=== PATIENT | male | born 1935 | race Caucasian/White ===

== ENCOUNTER 2020-09-28 08:45 | Outpatient (REF) | payer MEDICARE, SELFPAY ==
[2020-09-28 11:48] LABS: Cholesterol 155 mg/dL; HDL Cholesterol 51 mg/dL; LDL Cholesterol Calculated 77 mg/dl; Triglycerides 139 mg/dL
== END 2020-09-28 08:46 | disposition home or self-care (01) ==
LOC: HO.HMGCLDS 08:45
PROVIDERS: Visit Provider Internal Medicine
DX: E11.9 Type 2 diabetes mellitus without complications (principal)
CPT/HCPCS: 36415; 80061

== ENCOUNTER 2021-04-05 14:00 | Outpatient (REF) | payer MEDICARE, SELFPAY ==
[2021-04-05 15:02] LABS: Influenza A PCR NEGATIVE (Negative); Influenza B PCR NEGATIVE (Negative); Resp Syncy Virus RNA Qual PCR NEGATIVE (Negative); SARS COV2 PCR INHOUSE POSITIVE (Negative)
== END 2021-04-05 14:01 | disposition home or self-care (01) ==
LOC: HO.LNP 14:00
PROVIDERS: Visit Provider Internal Medicine
DX: Z20.822 Contact with and (suspected) exposure to COVID-19 (principal); R43.9 Unspecified disturbances of smell and taste
CPT/HCPCS: 0241U

== ENCOUNTER 2021-04-26 08:43 | Outpatient (REF) | payer MEDICARE, SELFPAY ==
[2021-04-26 12:30] LABS: Alanine Aminotransferase 19 U/L (0-40); Albumin Level 4.2 g/dL (3.5-5.0); Alkaline Phosphatase 75 U/L (39-117); Anion Gap 11 (12-20); Aspartate Amino Transferase 18 U/L (5-37); Bilirubin Total 0.7 mg/dL (0.0-1.0); Blood Urea Nitrogen 20 mg/dL (9-16); Calcium 8.9 mg/dL (8.4-10.2); Carbon Dioxide 28 mmol/L (22-29); Chloride 103 mmol/L (96-108); Cholesterol 138 mg/dL; Estimated Glomerular Filt Rate 48; Glucose Fasting 109 mg/dL (60-99); HDL Cholesterol 39 mg/dL; LDL Cholesterol Calculated 73 mg/dl; Potassium 4.4 mmol/L (3.3-5.1); Sodium 138 mmol/L (135-145); Triglycerides 132 mg/dL
== END 2021-04-26 08:44 | disposition home or self-care (01) ==
LOC: HO.HMGCLDS 08:43
PROVIDERS: PCP Internal Medicine; Visit Provider Nurse Practitioner Family
DX: Z13.1 Encounter for screening for diabetes mellitus (principal)
CPT/HCPCS: 36415; 80053; 80061

== ENCOUNTER 2022-07-17 08:29 | Outpatient (REF) | payer MEDICARE, SELFPAY ==
[2022-07-17 12:37] LABS: Anion Gap 14 (12-20); Blood Urea Nitrogen 18 mg/dL (9-16); Calcium 9.4 mg/dL (8.4-10.2); Carbon Dioxide 27 mmol/L (22-29); Chloride 105 mmol/L (96-108); Estimated Glomerular Filt Rate 47; Glucose Fasting 98 mg/dL (60-99); Potassium 4.9 mmol/L (3.3-5.1); Sodium 141 mmol/L (135-145)
== END 2022-07-17 08:30 | disposition home or self-care (01) ==
LOC: HO.HMGCLDS 08:29
PROVIDERS: Visit Provider Nurse Practitioner Family
DX: Z13.1 Encounter for screening for diabetes mellitus (principal)
CPT/HCPCS: 36415; 80048

== ENCOUNTER 2023-04-02 08:00 | Outpatient (REF) | payer MEDICARE, SELFPAY ==
[2023-04-02 11:19] LABS: MANUAL DIFF FLAG NO
[2023-04-02 11:34] LABS: Basophils Percent Auto 0.5 % (0-2); Eosinophils Absolute Auto 0.2 X10*3/uL (0.0-0.4); Eosinophils Percent Auto 2.5 % (0-4); Hematocrit 41.5 % (42.0-52.0); Hemoglobin 13.7 g/dl (14.0-18.0); Imm Gran Abs Auto 0.02 X10*3/uL (0.00-0.03); Imm Gran Pct Auto 0.3 % (0.0-0.4); Lymphocytes Absolute Auto 1.5 X10*3/uL (1.2-4.9); Lymphocytes Percent Auto 22.2 % (20-40); Mean Corpuscular Hemoglobin 31.1 pg (27.0-33.0); Mean Corpuscular Volume 94.1 fL (80.0-98.0); Mean Platelet Volume 11.2 fL (9.4-12.4); Monocytes Absolute Auto 0.5 X10*3/uL (0.1-1.2); Neutrophils Absolute Auto 4.3 x10*3/uL (2.0-8.3); Neutrophils Percent Auto 66.5 % (45-73); Platelet Count 215 X10*3/uL (160-400); Red Blood Count 4.41 X10*6/uL (4.60-5.80); Red Cell Distribution Width 12.6 % (11.0-16.0); White Blood Count 6.5 X10*3/uL (4.8-10.8)
[2023-04-02 12:18] LABS: Alanine Aminotransferase 15 U/L (0-40); Albumin Level 4.2 g/dL (3.5-5.0); Alkaline Phosphatase 60 U/L (39-117); Anion Gap 15 (12-20); Aspartate Amino Transferase 20 U/L (5-37); Bilirubin Total 0.6 mg/dL (0.0-1.0); Blood Urea Nitrogen 17 mg/dL (9-16); Calcium 9.5 mg/dL (8.4-10.2); Carbon Dioxide 24 mmol/L (22-29); Chloride 105 mmol/L (96-108); Cholesterol 129 mg/dL (<200); Estimated Glomerular Filt Rate 55; Glucose Fasting 93 mg/dL (60-99); HDL Cholesterol 46 mg/dL (>40); LDL Cholesterol Calculated 61 mg/dL (<100); Potassium 4.2 mmol/L (3.3-5.1); Sodium 140 mmol/L (135-145); Triglycerides 112 mg/dL (<150)
== END 2023-04-02 08:01 | disposition home or self-care (01) ==
LOC: HO.HMGCLDS 08:00
PROVIDERS: PCP Internal Medicine; Visit Provider Internal Medicine
DX: E78.5 Hyperlipidemia, unspecified (principal); N28.9 Disorder of kidney and ureter, unspecified; D64.9 Anemia, unspecified
CPT/HCPCS: 36415; 80053; 80061; 85025

== ENCOUNTER 2023-04-05 08:45 | Outpatient (AMB) | payer MEDICARE, SELFPAY ==
[2023-04-05 08:48] VITALS: BP 110/70; PULSE 76; O2SAT 100; BMI 25.8
--- NOTE | 2023-04-05 08:48 | A.OFFVIS_ITS ---
Intake Vital Signs 04/05/23 08:48 Height 6 ft Weight 190 lb 0.8 oz BMI 25.8 BP 110/70 Blood Pressure Location Lt brachial Position Sitting Pulse 76 Pulse Source Pulse Oximeter Temp Source Skin Pulse Oximetry (%) 100 Oxygen Delivery Method Room Air Intake Visit Reasons: SWV [id number] Allergies No Known Allergies Allergy (Verified 04/05/23 09:12) Medication List - Last Reconciled 04/05/23 by PAUL Brannon aspirin (Adult Low Dose Aspirin) 81 mg PO DAILY metoprolol succinate ER 50 mg PO DAILY simvastatin 20 mg PO BEDTIME terazosin 5 mg PO DAILY Fall Risk Assessment Fall risk assessment: No Falls in past year Date Fall Risk Assessed: 10/04/22 HPI SWV [id number] HPI Details Patient is an 87-year-old male who presents today for subsequent wellness visit. Patient of Dr. Qureshi. Today we discussed patient's need for tetanus vaccine, patient has declined tetanus vaccine. [place] of care was reviewed with the patient and he was provided with a screening schedule. End of life planning was discussed with the patient and he was provided with healthcare proxy and MOLST forms. [facility] Medical History Upper respiratory tract infection Hyperlipidemia Surgical History History of skin surgery History of ear surgery Family History Father No problems noted. Mother No problems noted. Son No problems noted. Brother No problems noted. Daughter No problems noted. Social History Housing: House Alcohol intake: current Alcohol intake frequency: 0-2 drinks per day Alcohol type: wine Patient Tobacco Use Status: Former Tobacco user Tobacco use type: Cigarette e-Cigarette/Vaping Use: Never Used Second Hand Smoke Exposure: No service: Yes Current occupational status: retired Cognitive needs: Yes Hearing needs: No Vision needs: Yes Questionnaire Medicare Wellness Checkup What is your age?: 80 or older What gender do you identify with?: male During the past 4 weeks, how much have you been bothered by emotional problems such as feeling anxious, depressed, irritable, sad or downhearted, and blue?: slightly During the past 4 weeks, has your physical & emotional health limited your social activities with family, friends, neighbors, or groups?: not at all During the past 4 weeks, how much bodily pain have you generally had?: mild pain During the past 4 weeks, was someone available to help you if you needed & wanted help?: yes, as much as I wanted During the past 4 weeks, what was the hardest physical activity you could do for at least 2 minutes?: moderate Can you get to places out of walking distance without help? (For eg., can you travel alone on buses, taxis or drive your car?): Yes Can you go shopping for groceries or clothes without someone's help?: Yes Can you prepare your own meals?: Yes Can you do your housework without help?: Yes Because of any health problems, do you need the help of another person with your personal care needs such as eating, bathing, dressing or getting around the house?: No Can you handle your own money without help?: Yes During the past 4 weeks, how would you rate your health in general?: very good During the past 4 weeks how have things been going for you?: pretty well Are you having difficulties driving your car?: no Do you always fasten your seat belt when you are in a car?: yes, usually During past 4 weeks, have you been bothered by the following: never: Sexual problems?, Trouble eating well? and Problems using the telephone?, seldom: Falling or dizzy when standing up and Tiredness or fatigue? and sometimes: Teeth or denture problems? Have you fallen 2 or more times in the past year?: No Are you afraid of falling?: Yes Are you a smoker?: no During the past 4 weeks, how many drinks of wine, beer, or other alcoholic beverages did you have?: 6-9 drinks per week Do you exercise for about 20 minutes 3 or more times a week?: no, I usually do not exercise this much Have you been given information to help with the following?: yes: Hazards in your house that might hurt you? and no: Keeping track of your medications? How often do you have trouble taking medicines the way you have been told to take them?: I always take medicine as prescribed How confident are you that you can control & manage most of your health problems?: somewhat confident What is your race?: White Mini Mental State Exam (MMSE) Orientation What is the (year) (season) (date) (day) (month)?: year, season, date, day and month Score Score: 5 Activity of Daily Living Bathing - sponge bath, tub bath or shower: receives no assistance (gets in/out by self, if usual bathing means Dressing - getting clothes from closets & drawers, including inner/outer garments & fasteners.: gets clothes & gets completely dressed without help Toileting - going to the 'toilet room' for urine/bowel elimination & cleaning self/arranging clothes: goes to toilet room, cleans self, arranges clothes without help Transfer: moves in & out of bed and chair without help (may use support object) Continence: controls urination/bowel movements completely by self Feeding: feeds self without help Total Score: 0 Information obtained from: patient Using telephone: independent Traveling: independent Shopping: independent Preparing meals: independent Housework: independent Taking medicine: independent Managing money: independent PHQ-9 Over the last 2 weeks, how often have you been bothered by any of the following problems? 1. Little interest or pleasure in doing things: not at all 2. Feeling down, depressed, or hopeless: not at all 3. Trouble falling or staying asleep, or sleeping too much: several days 4. Feeling tired or having little energy: several days 5. Poor appetite or overeating: not at all 6. Feeling bad about yourself - or that you are a failure or have let yourself or your family down: not at all 7. Trouble concentrating on things, such as reading the newspaper or watching television: not at all 8. Moving or speaking so slowly that other people could have noticed. Or the opposite - being so fidgety or restless that you have been moving around a lot more than usual: not at all 9. Thoughts that you would be better off or of hurting yourself in some way: not at all Total score: 2 Depression Screening Interpretation: Negative Depression Screening Done: Yes 90193 - PHQ-9 Billing: Yes Source: Developed by Drs. Cr Jules, Yanet Delatorre, Dixon Young and colleagues, with an educational tanner from [employer]. MYRA-7 AMB Questionnaire MYRA-7 Date MYRA - 7 assessed: 10/04/22 Source: Developed by Drs. Cr Jules, Yanet Delatorre, Dixon Young and colleagues, with an educational tanner from [employer]. Thrive Questionnaire Date Thrive assessed: 10/04/22 Physical Exam Vital Signs: Last Vital Signs Pulse 76 04/05/23 08:48 BP 110/70 04/05/23 08:48 Pulse Ox 100 04/05/23 08:48 Oxygen Delivery Method Room Air 04/05/23 08:48 BMI result Body Mass Index 25.8 Const General: cooperative and no acute distress Orientation/consciousness: patient oriented x3 HEENT Other: Whisper test: fail Neuro Other: Balance: Normal Get up and walk: unable to Romberg: negative Tandem gait: unable to General: patient oriented x3 Assessment & Plan Assessment & Plan (1) Adult general medical exam: Code(s): Z00.00 - Encounter for general adult medical examination without abnormal findings (2) Hypertension: Code(s): I10 - Essential (primary) hypertension Plan: Continue current treatment. Reinforced low-sodium diet and exercise as tolerated. (3) BPH associated with nocturia: Code(s): N40.1 - Benign prostatic hyperplasia with lower urinary tract symptoms; R35.1 - Nocturia Plan: Continue to follow-up with urology Dr. Steele. (4) Hyperlipidemia: Code(s): E78.5 - Hyperlipidemia, unspecified Plan: Continue current treatment. Reinforced low-cholesterol diet. 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
== END 2023-04-05 09:28 | disposition home or self-care (01) ==
PROVIDERS: Visit Provider Nurse Practitioner Family
DX: Z00.00 Encounter for general adult medical examination without abnormal findings (principal); I10 Essential (primary) hypertension; N40.1 Benign prostatic hyperplasia with lower urinary tract symptoms; R35.1 Nocturia; E78.5 Hyperlipidemia, unspecified
CPT/HCPCS: 1124F; G0439

== ENCOUNTER 2023-04-09 09:05 | Outpatient (AMB) | payer MEDICARE, SELFPAY ==
[2023-04-09 09:06] VITALS: BP 102/58; PULSE 65; O2SAT 95; BMI 26.4
--- NOTE | 2023-04-09 09:06 | MHC.PC.OV ---
Vital Signs 04/09/23 09:06 Height 6 ft Weight 195 lb BMI 26.4 BP 102/58 L Blood Pressure Location Lt brachial Position Sitting Pulse 65 Pulse Source Pulse Oximeter Pulse Oximetry (%) 95 Oxygen Delivery Method Room Air Intake Visit Reasons: 6 month f/u Allergies No Known Allergies Allergy (Verified 04/09/23 09:06) Medication List - Last Reconciled 04/09/23 by Christo Qureshi MD aspirin (Adult Low Dose Aspirin) 81 mg PO DAILY metoprolol succinate ER 50 mg PO DAILY simvastatin 20 mg PO BEDTIME terazosin 5 mg PO DAILY Tobacco use date assessed: 10/04/22 Fall risk assessment: No Falls in past year Last assessed Fall Risk: 04/09/23 Dental Screening Dental Screen Date: 04/09/23 Did you have a dental visit in the last 12 months?: Yes Did you have a dental problem in the last 6 months where you did not have access to dental care?: No Was dental information given to patient?: Patient has dentist HPI 6 month f/u HPI Details HTN hyperlipidemia and BPH; compliant on rx; doing well [facility] Medical History Upper respiratory tract infection Hyperlipidemia Surgical History History of skin surgery History of ear surgery Family History Father No problems noted. Mother No problems noted. Son No problems noted. Brother No problems noted. Daughter No problems noted. Social History Housing: House Alcohol intake: current Alcohol intake frequency: 0-2 drinks per day Alcohol type: wine Patient Tobacco Use Status: Former Tobacco user Tobacco use type: Cigarette e-Cigarette/Vaping Use: Never Used Second Hand Smoke Exposure: No service: Yes Current occupational status: retired Cognitive needs: Yes Hearing needs: No Vision needs: Yes Questionnaire PHQ-9 Over the last 2 weeks, how often have you been bothered by any of the following problems? 1. Little interest or pleasure in doing things: not at all 2. Feeling down, depressed, or hopeless: not at all 3. Trouble falling or staying asleep, or sleeping too much: several days 4. Feeling tired or having little energy: several days 5. Poor appetite or overeating: not at all 6. Feeling bad about yourself - or that you are a failure or have let yourself or your family down: not at all 7. Trouble concentrating on things, such as reading the newspaper or watching television: not at all 8. Moving or speaking so slowly that other people could have noticed. Or the opposite - being so fidgety or restless that you have been moving around a lot more than usual: not at all 9. Thoughts that you would be better off or of hurting yourself in some way: not at all Total score: 2 Depression Screening Interpretation: Negative Depression Screening Done: Yes 20343 - PHQ-9 Billing: Yes Source: Developed by Drs. Cr Jules, Dixon Tabor and colleagues, with an educational tanner from [employer]). Thrive Questionnaire Date Thrive assessed: 10/04/22 AUDIT C Alcohol Use Questionnaire (AUDIT-C) 1. How often do you have a drink containing alcohol?: 4 or more times a week 2. How many drinks containing alcohol do you have on a typical day when you are drinking?: 1 or 2 3. How often do you have six or more drinks on one occasion?: Never Total Score: 4 Score Reviewed/Action Taken: Yes MYRA-7 AMB Questionnaire MYRA-7 Date MYRA - 7 assessed: 10/04/22 Source: Developed by Drs. Cr Jules, Dixon Tabor and colleagues, with an educational tanner from [employer] ([employer] Review of Systems Const Denies chills, Denies headache(s) and Denies weight loss ENT Denies headache(s) Card Denies chest pain, Denies syncope, Denies irregular heart rhythm and Denies dyspnea Resp Denies chest congestion, Denies cough and Denies dyspnea GI Denies abdominal pain, Denies change in stool character, Denies nausea and Denies vomiting Musc Denies deformity and Denies joint swelling Neuro Denies syncope and Denies headache(s) Physical exam (Primary Care) Vital Signs: Last Vital Signs Pulse 65 04/09/23 09:06 BP 102/58 L 04/09/23 09:06 Pulse Ox 95 04/09/23 09:06 Oxygen Delivery Method Room Air 04/09/23 09:06 BMI result Body Mass Index 26.4 Tobacco/Smoking Status: Tobacco use Status Tobacco use date assessed 10/04/22 04/09/23 09:07 Patient Tobacco Use Status Former Tobacco user 04/09/23 09:07 Tobacco use type Cigarette 04/09/23 09:07 e-Cigarette/Vaping Use Never Used 04/09/23 09:07 PHQ-9: PHQ-9 Score PHQ-9: Total score 2 04/09/23 09:07 Depression Screening Interpretation: Negative Thrive Assessment: Date of Thrive Assessment Date Thrive assessed 10/04/22 04/09/23 09:07 Const General: cooperative, comfortable, no acute distress and alert Neck Neck: Yes no lymphadenopathy Thyroid: Thyroid normal Resp Effort & Inspection: normal respiratory effort Auscultation: clear to auscultation bilaterally Percussion: percussion normal Cardio Jugular venous distension: no JVD Palpation: normal PMI Rate: regular rate Rhythm: regular rhythm Heart sounds: S1 normal heart sound present and S2 normal heart sound present GI Inspection: Yes normal to inspection Palpation (GI): No hepatosplenomegaly present Skin General skin exam: no rashes or lesions noted Extrem General: Yes no clubbing, cyanosis or edema Assessment and Plan Assessment & Plan (1) Hypertension: Code(s): I10 - Essential (primary) hypertension Plan: stable; same rx (2) BPH associated with nocturia: Code(s): N40.1 - Benign prostatic hyperplasia with lower urinary tract symptoms; R35.1 - Nocturia Plan: stable; same rx (3) Hyperlipidemia: Code(s): E78.5 - Hyperlipidemia, unspecified Plan: stable; same rx Orders: Orders Lipid Panel Today E78.5 - Hyperlipidemia, unspecified Coding Level of Care Code Est Pt Level 4 (09689) Diagnoses Hypertension I10 BPH associated with nocturia N40.1; R35.1 Hyperlipidemia E78.5
== END 2023-04-09 09:22 | disposition home or self-care (01) ==
PROVIDERS: PCP Internal Medicine; Visit Provider Internal Medicine
DX: I10 Essential (primary) hypertension (principal); N40.1 Benign prostatic hyperplasia with lower urinary tract symptoms; R35.1 Nocturia; E78.5 Hyperlipidemia, unspecified
CPT/HCPCS: 99214

== ENCOUNTER 2023-10-04 11:06 | Outpatient (AMB) | payer MEDICARE, SELFPAY ==
[2023-10-04 11:07] VITALS: BP 120/64; PULSE 74; O2SAT 98; BMI 26.0
--- NOTE | 2023-10-04 11:07 | A.OFFPC_ITS ---
Vital Signs 10/04/23 11:07 Height 6 ft Weight 192 lb 0.6 oz BMI 26.0 BP 120/64 Blood Pressure Location Lt brachial Position Sitting Pulse 74 Pulse Source Pulse Oximeter Pulse Oximetry (%) 98 Oxygen Delivery Method Room Air Intake Visit Reasons: Groin pain Intake Note: pt states he has been having pain on groin area for about 3-4weeks, stated he cannot lift anything without being in pain. 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: No Allergies No Known Allergies Allergy (Verified 10/04/23 11:08) Medication List - Last Reconciled 10/04/23 by Christo Qureshi MD aspirin (Adult Low Dose Aspirin) 81 mg PO DAILY metoprolol succinate ER 50 mg PO DAILY simvastatin 20 mg PO BEDTIME terazosin 5 mg PO DAILY Tobacco use date assessed: 10/04/23 Fall risk assessment: No Falls in past year Last assessed Fall Risk: 10/04/23 Dental Screening Dental Screen Date: 04/09/23 HPI Groin pain HPI Details pain right groin for 2 weeks PFSH Medical History Upper respiratory tract infection Hyperlipidemia Surgical History History of skin surgery History of ear surgery Family History Father No problems noted. Mother No problems noted. Son No problems noted. Brother No problems noted. Daughter No problems noted. Social History Housing: House Alcohol intake: current Alcohol intake frequency: 0-2 drinks per day Alcohol type: wine Patient Tobacco Use Status: Former Tobacco user Tobacco use type: Cigarette e-Cigarette/Vaping Use: Never Used Second Hand Smoke Exposure: No service: Yes Current occupational status: retired Cognitive needs: Yes Hearing needs: No Vision needs: Yes Questionnaire Thrive Questionnaire Date Thrive assessed: 10/04/23 AUDIT C Alcohol Use Questionnaire (AUDIT-C) 1. How often do you have a drink containing alcohol?: 4 or more times a week 2. How many drinks containing alcohol do you have on a typical day when you are drinking?: 1 or 2 3. How often do you have six or more drinks on one occasion?: Never Total Score: 4 Score Reviewed/Action Taken: Yes MYRA-7 AMB Questionnaire MYRA-7 Date MYRA - 7 assessed: 10/04/23 Source: Developed by Drs. Cr Jules, Yanet Delatorre, Dixon Young and colleagues, with an educational tanner from [employer]. Review of Systems Const Denies chills, Denies headache(s) and Denies weight loss ENT Denies headache(s) Card Denies chest pain, Denies syncope, Denies irregular heart rhythm and Denies dyspnea Resp Denies chest congestion, Denies cough and Denies dyspnea GI Denies abdominal pain, Denies change in stool character, Denies nausea and Denies vomiting Musc Denies deformity and Denies joint swelling Neuro Denies syncope and Denies headache(s) Physical exam (Primary Care) Vital Signs: Last Vital Signs Pulse 74 10/04/23 11:07 BP 120/64 10/04/23 11:07 Pulse Ox 98 10/04/23 11:07 Oxygen Delivery Method Room Air 10/04/23 11:07 BMI result Body Mass Index 26.0 Tobacco/Smoking Status: Tobacco use Status Tobacco use date assessed 10/04/23 10/04/23 11:08 Patient Tobacco Use Status Former Tobacco user 10/04/23 11:08 Tobacco use type Cigarette 10/04/23 11:08 e-Cigarette/Vaping Use Never Used 10/04/23 11:08 Thrive Assessment: Date of Thrive Assessment Date Thrive assessed 10/04/23 10/04/23 11:08 Const General: cooperative, comfortable, no acute distress and alert Neck Neck: Yes no lymphadenopathy Thyroid: Thyroid normal Resp Effort & Inspection: normal respiratory effort Auscultation: clear to auscultation bilaterally Percussion: percussion normal Cardio Jugular venous distension: no JVD Palpation: normal PMI Rate: regular rate Rhythm: regular rhythm Heart sounds: S1 normal heart sound present and S2 normal heart sound present GI Inspection: Yes normal to inspection Palpation (GI): No hepatosplenomegaly present Other: small right IH Skin General skin exam: no rashes or lesions noted Extrem General: Yes no clubbing, cyanosis or edema Assessment and Plan Assessment & Plan (1) Inguinal hernia: Code(s): K40.90 - Unilateral inguinal hernia, without obstruction or gangrene, not specified as recurrent Plan: scrptal US Orders: Orders US scrotum Today K40.90 - Unilateral inguinal hernia, without obstruction or gangrene, not specified as recurrent Coding Level of Care Code Est Pt Level 3 (50886) Diagnoses Inguinal hernia K40.90
== END 2023-10-04 11:25 | disposition home or self-care (01) ==
PROVIDERS: PCP Internal Medicine; Visit Provider Internal Medicine
DX: K40.90 Unilateral inguinal hernia, without obstruction or gangrene, not specified as recurrent (principal)
CPT/HCPCS: 99213

== ENCOUNTER 2023-10-09 10:21 | Outpatient (REF) | payer MEDICARE, SELFPAY ==
--- NOTE | ~2023-10-09 | US_ITS ---
EXAMINATION: US RIGHT, LIMITED/FOLLOW UP CLINICAL INFORMATION: Right pelvic pain COMPARISON: None available. TECHNIQUE: Ultrasound of the area indicated by the patient in the right pelvic/inguinal area. The patient was scanned supine and standing. FINDINGS: Ultrasound of the right pelvic area in the area of concern indicated by the patient demonstrate a normal-appearing enlarged 3.3 x 0.9 x 3.1 cm lymph node. A large amount of peristalsing bowel is seen.? 6.1 cm hernia. Peristalsing bowel is seen protruding through the fascia. US/US pelvic limited IMPRESSION: 1. In the area of concern indicated by the patient in the right pelvic area, there is a normal-appearing enlarged 3.3 cm lymph node. 2. ? 6.1 cm hernia near concern indicated by the patient. CT scan could be obtained for further evaluation.
== END 2023-10-09 10:22 | disposition home or self-care (01) ==
LOC: HO.HMGCX 10:21
PROVIDERS: PCP Internal Medicine; Visit Provider Internal Medicine
DX: K40.90 Unilateral inguinal hernia, without obstruction or gangrene, not specified as recurrent (principal)
CPT/HCPCS: 76857

== ENCOUNTER 2023-10-17 08:19 | Outpatient (AMB) | payer MEDICARE, SELFPAY ==
--- NOTE | 2023-10-17 08:20 | A.OFFVIS_ITS ---
Vital Signs 10/17/23 08:25 Height 6 ft Weight 193 lb BMI 26.2 BP 133/64 Blood Pressure Location Rt brachial Position Sitting Pulse 73 Intake Visit Reasons: Unilateral inguinal hernia Intake Note: Patient referred by PCP Dr. Qureshi for Unilateral inguinal hernia. First noticed about 4m ago. Patient c/o: on and off pain 01/25. Pelvis US: 10-09-23. Account Officer Required: No Accompanied by: Self / Same As Patient Allergies No Known Allergies Allergy (Verified 10/17/23 08:27) HPI Comments Details: Approximate 1 month history of symptomatic right inguinal hernia. It is increasing in size, becoming more symptomatic. Patient has no other GI issues or complaints aside from occasional constipation which he has had for many years time. He does occasionally do strenuous activities. Chart was reviewed and patient evaluated [facility]END[facility] S[facility] TO [facility] Medical History (Updated 10/17/23 @ 08:31 by HENRIK Medina) History of melanoma Upper respiratory tract infection Hyperlipidemia Surgical History (Updated 10/17/23 @ 09:31 by Artie Navarrete MD) History of skin surgery History of ear surgery Family History Father No problems noted. Mother No problems noted. Son No problems noted. Brother No problems noted. Daughter No problems noted. Social History Housing: House Alcohol intake: current Alcohol intake frequency: 0-2 drinks per day Alcohol type: wine Patient Tobacco Use Status: Former Tobacco user Tobacco use type: Cigarette e-Cigarette/Vaping Use: Never Used Second Hand Smoke Exposure: No service: Yes Current occupational status: retired Cognitive needs: Yes Hearing needs: No Vision needs: Yes Physical Exam Vital Signs: Last Vital Signs Pulse 73 10/17/23 08:25 BP 133/64 10/17/23 08:25 BMI result Body Mass Index 26.2 Chest Other: Chest breath sounds bilaterally, HS 1 in 2 GI Other: Patient was examined both supine and standing with Valsalva. Left groin negative. Genitalia within normal limits. Very large reducible right inguinal hernia. Abdomen otherwise soft and benign Assessment & Plan Assessment & Plan (1) Inguinal hernia: Code(s): K40.90 - Unilateral inguinal hernia, without obstruction or gangrene, not specified as recurrent Category: Surgical Plan Risks, benefits, alternatives of open right inguinal hernia repair with mesh were reviewed the patient and included but not limited to bleeding, infection, recurrence, numbness, pain, scarring and the patient wished to proceed. All questions answered. Arrangements made for this. Coding Level of Care Code New Pt Level 5 (93261) Diagnoses Inguinal hernia K40.90
[2023-10-17 08:25] VITALS: BP 133/64; PULSE 73; BMI 26.2
== END 2023-10-17 08:53 | disposition home or self-care (01) ==
PROVIDERS: PCP Internal Medicine; Referring Provider Internal Medicine; Visit Provider Surgery
DX: K40.90 Unilateral inguinal hernia, without obstruction or gangrene, not specified as recurrent (principal)
CPT/HCPCS: 99204

== ENCOUNTER → 2023-10-17 08:19 | Outpatient (BNVA) | payer MEDICARE, SELFPAY | PROVIDERS: PCP Internal Medicine; Referring Provider Internal Medicine; Visit Provider Surgery | DX: K40.90 Unilateral inguinal hernia, without obstruction or gangrene, not specified as recurrent (principal) | CPT/HCPCS: 99202 ==

== ENCOUNTER → 2023-11-08 13:54 | Outpatient (BNV) | payer MEDICARE, SELFPAY | PROVIDERS: PCP Internal Medicine; Visit Provider Internal Medicine Cardiovascular Disease | DX: R00.1 Bradycardia, unspecified (principal); I45.2 Bifascicular block | CPT/HCPCS: 93010 ==

== ENCOUNTER 2023-11-16 06:21 | Day surgery (SDC) | payer MEDICARE, SELFPAY ==
--- NOTE | 2023-11-08 | ECG_ITS ---
Test Reason : PREOP Blood Pressure : / mmHG Vent. 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
[2023-11-08 12:31] VITALS: BP 131/79; PULSE 66; RESP 18; O2SAT 97; BMI 26.0
--- NOTE | 2023-11-08 13:16 | P.CONAN_ITS ---
Documented by User: Vandana Hays NP 11/14/23 13:48 HPI - Anesthesia Eval Consult details Narrative: 88yo M for Right Repair Hernia Inguinal Reducible with mesh No recent illness No CP/SOB with ADL's/active lifestyle GERD: PRN Tums New bifascicular block. Case reviewed with Dr Phillip by MEI Baker. OK to proceed with anesthesia eval DOS. PMFSH Active Problems Active Problems: All Active Problems Inguinal hernia (Acute) Adult general medical exam (Acute) Screening for diabetes mellitus (Acute) Hypertension (Acute) BPH associated with nocturia (Acute) Hyperlipidemia (Acute) Past Medical History Medical History COVID-19 History of Mohs micrographic surgery for skin cancer Arthritis Constipation GERD (gastroesophageal reflux disease) Pilonidal cyst with abscess On beta kyaw at home Numbness BPH (benign prostatic hyperplasia) HTN (hypertension) History of melanoma Upper respiratory tract infection Hyperlipidemia Family History Family History Father No problems noted. Mother No problems noted. Son No problems noted. Brother No problems noted. Daughter No problems noted. Family history of problems with anesthesia: No Surgical History Surgical History Hx of tonsillectomy H/O colonoscopy Hx of prostate biopsy History of skin surgery History of ear surgery History of Problems with Anesthesia: No Social History Social History Housing: House Are you a primary customer care associate to a significant other at home: No Do you presently have visiting nurse or other home services: No Alcohol intake: current Alcohol intake frequency: 0-2 drinks per day Alcohol type: wine Patient Tobacco Use Status: Former Tobacco user Tobacco use type: Cigarette e-Cigarette/Vaping Use: Never Used Second Hand Smoke Exposure: No Use of substances other than those prescribed or required for medical reasons: No Have you been hit, kicked, punched, or otherwise hurt by someone within the past year? If so, by whom?: No Are you DNR?: No Advance Directives: No Advance Directives Information Provided: Yes Advance Directives on File: No Recently lost weight without trying: No Eating poorly because of decreased appetite: No Nutrition Risks: No Nutritional Risk Poor oral hygiene: Yes (partial upper and lower denture) service: Yes Current occupational status: retired Cognitive needs: Yes Hearing needs: No Vision needs: Yes Meds Allergies Allergy/AdvReac Type Severity Reaction Status Date / Time No Known Allergies Allergy Verified 10/17/23 08:27 Home Medications ?Medication ?Instructions ?Recorded ?Confirmed ?Last Taken ?Type metoprolol succinate 50 mg 50 mg PO BEDTIME 11/08/23 11/08/23 11/15/23 History tablet,extended release 24 hr terazosin 5 mg capsule 5 mg PO BEDTIME 11/08/23 11/08/23 11/15/23 History Exam Height,Weight and Vital Signs: Height 6 ft Weight 87.09 kg Last Vital Signs Pulse 66 11/08/23 12:31 Resp 18 11/08/23 12:31 BP 131/79 11/08/23 12:31 Pulse Ox 97 11/08/23 12:31 O2 Del Method Room Air 11/08/23 12:31 Pertinent Lab Results Pertinent Lab Results: Lab Results 11/08/23 Range/Units 13:49 WBC 7.5 (4.8-10.8) X10*3/uL RBC 4.23 L (4.60-5.80) X10*6/uL Hgb 13.3 L (14.0-18.0) g/dl Hct 40.6 L (42.0-52.0) % MCV 96.0 (80.0-98.0) fL MCH 31.4 (27.0-33.0) pg MCHC 32.8 (31.0-36.0) g/dl RDW 13.0 (11.0-16.0) % Plt Count 220 (160-400) X10*3/uL MPV 10.1 (9.4-12.4) fL Absolute Nucleated RBC 0.000 (0.0-0.012) X10*3/uL Nucleated RBC % (auto) 0.0 (0.0-0.2) /100WBC Sodium 143 (135-145) mmol/L Potassium 4.2 (3.3-5.1) mmol/L Chloride 105 (96-108) mmol/L Carbon Dioxide 26 (22-29) mmol/L Anion Gap 16 (12-20) BUN 25 H (9-16) mg/dL Creatinine 1.23 (0.5-1.4) mg/dL Estim Creat Clear Calc 45.5 Estimated GFR 56 Random Glucose 90 (60-115) mg/dL Calcium 9.8 (8.4-10.2) mg/dL Narrative Narrative: EKG 10/2023 Vent. Rate : 055 BPM Atrial Rate : 055 BPM P-R Int : 172 ms QRS Dur : 126 ms QT Int : 440 ms P-R-T Axes : 081 -62 034 degrees QTc Int : 420 ms Sinus bradycardia with Premature atrial complexes in a pattern of bigeminy Right bundle branch block Left anterior fascicular block Bifascicular block Abnormal ECG No previous ECGs available Airway TM Dist: >3cm Neck ROM: Limited (lateral turn limited) Partial: Upper and Lower Heart: RRR Lungs: CTAB Assessment and Plan Assessment Anesthesia Assessment: Anesthesia Plan Discussed and PAT Visit Final Anesthetic Review Family History of Problems with Anesthesia: No History of Problems with Anesthesia: No Documented by User: Johana Winters MD 11/16/23 08:07 REPLACED BY [facility] Past Medical History Medical History COVID-19 History of Mohs micrographic surgery for skin cancer Arthritis Constipation GERD (gastroesophageal reflux disease) Pilonidal cyst with abscess On beta kyaw at home Numbness BPH (benign prostatic hyperplasia) HTN (hypertension) History of melanoma Upper respiratory tract infection Hyperlipidemia Family History Family History Father No problems noted. Mother No problems noted. Son No problems noted. Brother No problems noted. Daughter No problems noted. Surgical History Surgical History Hx of tonsillectomy H/O colonoscopy Hx of prostate biopsy History of skin surgery History of ear surgery Social History Social History Housing: House Are you a primary customer care associate to a significant other at home: No Do you presently have visiting nurse or other home services: No Alcohol intake: current Alcohol intake frequency: 0-2 drinks per day Alcohol type: wine Patient Tobacco Use Status: Former Tobacco user Tobacco use type: Cigarette e-Cigarette/Vaping Use: Never Used Second Hand Smoke Exposure: No Use of substances other than those prescribed or required for medical reasons: No Have you been hit, kicked, punched, or otherwise hurt by someone within the past year? If so, by whom?: No Are you DNR?: No Advance Directives: No Advance Directives Information Provided: Yes Advance Directives on File: No Recently lost weight without trying: No Eating poorly because of decreased appetite: No Nutrition Risks: No Nutritional Risk Poor oral hygiene: Yes (partial upper and lower denture) service: Yes Current occupational status: retired Cognitive needs: Yes Hearing needs: No Vision needs: Yes Meds Allergies Allergy/AdvReac Type Severity Reaction Status Date / Time No Known Allergies Allergy Verified 10/17/23 08:27 Home Medications ?Medication ?Instructions ?Recorded ?Confirmed ?Last Taken ?Type metoprolol succinate 50 mg 50 mg PO BEDTIME 11/08/23 11/08/23 11/15/23 History tablet,extended release 24 hr terazosin 5 mg capsule 5 mg PO BEDTIME 11/08/23 11/08/23 11/15/23 History Exam Airway Mallampati Class: III Loose/Missing/Broken Teeth: Yes, Upper and Lower Assessment and Plan Final Anesthetic Review NPO: Yes ASA Class: III Final Preanesthetic Review: Meds/Allgs Chart Reviewed and Anes Risks/Benef Reviewed Patient Risk: Intermediate Procedure Risk: Low Anesthetic Plan Anesthetic Plan: MAC: Disposition: Standard PACU
[2023-11-08 14:10] LABS: Hematocrit 40.6 % (42.0-52.0); Hemoglobin 13.3 g/dl (14.0-18.0); Mean Corpuscular HGB Conc 32.8 g/dl (31.0-36.0); Mean Corpuscular Hemoglobin 31.4 pg (27.0-33.0); Mean Platelet Volume 10.1 fL (9.4-12.4); Platelet Count 220 X10*3/uL (160-400); Red Blood Count 4.23 X10*6/uL (4.60-5.80); White Blood Count 7.5 X10*3/uL (4.8-10.8)
[2023-11-08 14:41] LABS: Anion Gap 16 (12-20); Blood Urea Nitrogen 25 mg/dL (9-16); Calcium 9.8 mg/dL (8.4-10.2); Carbon Dioxide 26 mmol/L (22-29); Chloride 105 mmol/L (96-108); Creatinine Clr Calc Pharmacy 45.5; Estimated Glomerular Filt Rate 56; Glucose Random 90 mg/dL (60-115); Potassium 4.2 mmol/L (3.3-5.1); Sodium 143 mmol/L (135-145)
--- NOTE | 2023-11-15 13:23 | MHC.SHP ---
Pre-Procedural Eval Section A - 24 Hr Update-Section A only Date of Service: 11/16/23 The patient is an INPATIENT: No Changes since office visit: No Cold of Flu in the past 2 weeks, No New Medical Problems, No Changes in Medication and No Patient answered all questions Section B - Complete if H&P > 30 days Chief Complaint: Unilateral inguinal hernia, without obstruction or Allergies: Allergies Allergy/AdvReac Type Severity Reaction Status Date / Time No Known Allergies Allergy Verified 10/17/23 08:27 Plan I have reviewed the history and physical and performed a pertinent physical examination on my patient. No changes have occurred unless specified. Time Spent With Patient Time: Total time managing care of this patient today ____ minutes.
[2023-11-16 06:44] VITALS: BP 137/65; PULSE 58; RESP 16; TEMP 36.1; O2SAT 99
[2023-11-16] MEDS: Lactated Ringers 1,000 ML 100 ML IVCONT (06:47)
--- NOTE | 2023-11-16 08:27 | P.OP_ITS ---
Operative Note Operative Note Date of Service: 11/16/23 Narrative: Preoperative diagnosis: [] Symptomatic right inguinal hernia Postop diagnosis: [] The same Procedure [] open right inguinal herniorrhaphy with Bard mesh Surgeon: [] Landon Assembler Arranger: [] Elisabeth Humphries Type of Anesthesia: [] MAC Indication for surgery: [] Very large indirect right inguinal hernia. No direct hernia demonstrated. Findings: [] Patient brought to the operating room, placed on operative table supine position, after adequate level of MAC anesthesia was induced, the right groin was prepped and draped in usual sterile fashion. Using a small right para inguinal incision, this carried down through skin, subcutaneous tissue, Henry's fascia. External oblique fibers were opened their direction with care to isolate and preserve the ilioinguinal nerve throughout the procedure. Spermatic cord was identified and retracted from the field. Exploration of the cord demonstrated very large indirect hernia sac which was from the cord and reduced. No direct hernia was demonstrated. A Bard plug was placed in the indirect defect, and sutured inferiorly to the inguinal ligament, and superiorly to the transversalis fascia using interrupted 0 Ethibond suture. Mesh was in good position and cover the entire inguinal floor as well as the indirect defect. It was under no tension and with no gaps. Wound was irrigated, secured hemostasis, and closed in the following manner; external oblique fascia was closed using running 2-0 Vicryl suture. Henry's fascia was reapproximated using interrupted 3-0 Vicryl sutures. Interrupted inverted deep dermal 3-0 Vicryl sutures followed by running subcuticular 4-0 Vicryl sutures were placed. Steri-Strips and sterile dressings were applied. Wound was infiltrated at the beginning at the end of the case with 0.5% Marcaine/1% lidocaine locally and with ilioinguinal block. Sponge, needle, and instrument counts reported correct. Patient tolerated the procedure well and emerged from anesthesia stable condition. Ipsilateral testicle was intrascrotal at completion. EBL minimal
[2023-11-16 08:35] VITALS: BP 105/55; PULSE 56; RESP 16; TEMP 36.1; O2SAT 97
[2023-11-16 08:50] VITALS: BP 110/64; PULSE 59; RESP 16; O2SAT 97
[2023-11-16 09:05] VITALS: BP 116/64; PULSE 50; RESP 16; O2SAT 99
[2023-11-16 09:19] VITALS: BP 101/68; PULSE 54; RESP 16; O2SAT 98
[2023-11-16 09:35] VITALS: BP 127/71; PULSE 53; RESP 16; TEMP 36.2; O2SAT 99
[2023-11-16] MEDS: Acetaminophen 325 MG TABLET 650 MG PO (09:38)
== END 2023-11-16 10:15 | disposition home or self-care (01) ==
PROVIDERS: Nurse Practitioner; PCP Internal Medicine; Visit Provider Surgery
PROC: (CPT 49505; principal; 2023-11-16 08:00)
DX: K40.90 Unilateral inguinal hernia, without obstruction or gangrene, not specified as recurrent (principal)
CPT/HCPCS: 49505; 36415; 80048; 85027; 93005; C1781; J0690; J2704; J2795; J3010

== ENCOUNTER → 2023-11-16 06:21 | Outpatient (BNV) | payer MEDICARE, SELFPAY | PROVIDERS: PCP Internal Medicine; Visit Provider Surgery | DX: K40.90 Unilateral inguinal hernia, without obstruction or gangrene, not specified as recurrent (principal) | CPT/HCPCS: 49505 ==

== ENCOUNTER 2023-11-26 09:55 | Outpatient (AMB) | payer MEDICARE, SELFPAY ==
--- NOTE | 2023-11-26 10:07 | MHC.OFFVIS ---
Intake Visit Reasons: S/P RIH w/mesh Allergies No Known Allergies Allergy (Verified 10/17/23 08:27) HPI Comments Details: Patient presents for follow-up. He has no wound issues or complaints. Tolerating his diet. Having regular bowel habits. Otherwise doing very well. [facility] Medical History COVID-19 History of Mohs micrographic surgery for skin cancer Arthritis Constipation GERD (gastroesophageal reflux disease) Pilonidal cyst with abscess On beta kyaw at home Numbness BPH (benign prostatic hyperplasia) HTN (hypertension) History of melanoma Upper respiratory tract infection Hyperlipidemia Surgical History (Updated 11/26/23 @ 10:08 by Artie Navarrete MD) Inguinal hernia (11/16/23) Hx of tonsillectomy H/O colonoscopy Hx of prostate biopsy History of skin surgery History of ear surgery Family History Father No problems noted. Mother No problems noted. Son No problems noted. Brother No problems noted. Daughter No problems noted. Social History Housing: House Are you a primary transition of care specialist to a significant other at home: No Do you presently have visiting nurse or other home services: No Alcohol intake: current Alcohol intake frequency: 0-2 drinks per day Alcohol type: wine Patient Tobacco Use Status: Former Tobacco user Tobacco use type: Cigarette e-Cigarette/Vaping Use: Never Used Second Hand Smoke Exposure: No service: Yes Current occupational status: retired Cognitive needs: Yes Hearing needs: No Vision needs: Yes Physical Exam GI Other: Abdomen is soft. Wound clean dry and intact healing very well Assessment & Plan Assessment & Plan (1) Postop check: Code(s): Z09 - Encounter for follow-up examination after completed treatment for conditions other than malignant neoplasm Category: Surgical Plan Patient has been given local instructions, and will otherwise follow-up p.r.n.. All questions answered. Coding Level of Care Code Global (72574) Diagnoses Postop check Z09
== END 2023-11-26 10:10 | disposition home or self-care (01) ==
PROVIDERS: PCP Internal Medicine; Visit Provider Surgery
DX: Z09 Encounter for follow-up examination after completed treatment for conditions other than malignant neoplasm (principal)
CPT/HCPCS: 99024

== ENCOUNTER → 2023-11-26 09:55 | Outpatient (BNVA) | payer MEDICARE, SELFPAY | PROVIDERS: PCP Internal Medicine; Visit Provider Surgery | DX: Z09 Encounter for follow-up examination after completed treatment for conditions other than malignant neoplasm (principal) | CPT/HCPCS: 99212 ==

== ENCOUNTER 2024-04-08 08:58 | Outpatient (AMB) | payer MEDICARE, SELFPAY ==
[2024-04-08 09:05] VITALS: BP 114/62; PULSE 59; O2SAT 97; BMI 25.1
--- NOTE | 2024-04-08 09:05 | AM.OFFVISMDC ---
Intake Vital Signs 04/08/24 09:05 Height 6 ft Weight 185 lb BMI 25.1 BP 114/62 Blood Pressure Location Lt brachial Position Sitting Pulse 59 Pulse Source Pulse Oximeter Pulse Oximetry (%) 97 Oxygen Delivery Method Room Air Intake Visit Reasons: SWV Digital Marketing Intern Required: No Accompanied by: Self / Same As Patient Allergies No Known Allergies Allergy (Verified 04/08/24 09:05) Medication List - Last Reconciled 04/09/24 by Christo Qureshi MD metoprolol succinate ER 50 mg PO BEDTIME simvastatin 20 mg PO BEDTIME terazosin 5 mg PO BEDTIME HPI SWV HPI Details hypertension and hyperlipidemia PFSH Medical History (Updated 04/09/24 @ 09:06 by Christo Qureshi MD) COVID-19 History of Mohs micrographic surgery for skin cancer Arthritis Constipation GERD (gastroesophageal reflux disease) Pilonidal cyst with abscess On beta kyaw at home Numbness BPH (benign prostatic hyperplasia) HTN (hypertension) History of melanoma Upper respiratory tract infection Hyperlipidemia Surgical History (Updated 11/26/23 @ 10:08 by Artie Navarrete MD) Inguinal hernia (11/16/23) Hx of tonsillectomy H/O colonoscopy Hx of prostate biopsy History of skin surgery History of ear surgery Family History Father No problems noted. Mother No problems noted. Son No problems noted. Brother No problems noted. Daughter No problems noted. Social History Housing: House Are you a primary direct care supervisor to a significant other at home: No Do you presently have visiting nurse or other home services: No Alcohol intake: current Alcohol intake frequency: 0-2 drinks per day Alcohol type: wine Patient Tobacco Use Status: Former Tobacco user Tobacco use type: Cigarette e-Cigarette/Vaping Use: Never Used Second Hand Smoke Exposure: No service: Yes Current occupational status: retired Cognitive needs: Yes Hearing needs: No Vision needs: Yes Questionnaire Medicare Wellness Checkup What is your age?: 80 or older What gender do you identify with?: male During the past 4 weeks, how much have you been bothered by emotional problems such as feeling anxious, depressed, irritable, sad or downhearted, and blue?: slightly (anxious) During the past 4 weeks, has your physical & emotional health limited your social activities with family, friends, neighbors, or groups?: not at all During the past 4 weeks, how much bodily pain have you generally had?: no pain During the past 4 weeks, was someone available to help you if you needed & wanted help?: yes, as much as I wanted During the past 4 weeks, what was the hardest physical activity you could do for at least 2 minutes?: moderate Can you get to places out of walking distance without help? (For eg., can you travel alone on buses, taxis or drive your car?): Yes Can you go shopping for groceries or clothes without someone's help?: Yes Can you prepare your own meals?: Yes Can you do your housework without help?: Yes Because of any health problems, do you need the help of another person with your personal care needs such as eating, bathing, dressing or getting around the house?: No Can you handle your own money without help?: Yes During the past 4 weeks, how would you rate your health in general?: very good During the past 4 weeks how have things been going for you?: pretty well Are you having difficulties driving your car?: no Do you always fasten your seat belt when you are in a car?: yes, usually During the past 4 weeks, how many drinks of wine, beer, or other alcoholic beverages did you have?: 6-9 drinks per week Do you exercise for about 20 minutes 3 or more times a week?: no, I usually do not exercise this much Have you been given information to help with the following?: yes: Hazards in your house that might hurt you? and no: Keeping track of your medications? How often do you have trouble taking medicines the way you have been told to take them?: I always take medicine as prescribed How confident are you that you can control & manage most of your health problems?: somewhat confident What is your race?: White Mini Mental State Exam (MMSE) Orientation What is the (year) (season) (date) (day) (month)?: year, season, date, day and month Where are we (state) (county) (town or city) (hospital) (floor)?: state, county, town or city, hospital/clinic and floor Registration Name of 3 unrelated objects clearly and slowly, then ask patient to repeat all 3 of them. (1st repeat determines score. Make sure they can repeat all three): object 1, object 2 and object 3 Attention & Calculation (CHOOSE ONE) Ask pt to begin with 100 & count backward by 7. Stop after 5 repeats. If pt cannot ask them to spell the word WORLD backward.: 93 and 86 Spell WORLD backwards (DLROW): 2 letters Recall Ask patient to repeat the 3 items from question #3.: object 1 Score Score: 18 Activity of Daily Living Bathing - sponge bath, tub bath or shower: receives no assistance (gets in/out by self, if usual bathing means Dressing - getting clothes from closets & drawers, including inner/outer garments & fasteners.: gets clothes & gets completely dressed without help Toileting - going to the 'toilet room' for urine/bowel elimination & cleaning self/arranging clothes: goes to toilet room, cleans self, arranges clothes without help Transfer: moves in & out of bed and chair without help (may use support object) Continence: controls urination/bowel movements completely by self Feeding: feeds self without help Total Score: 0 Information obtained from: patient Using telephone: independent Traveling: independent Shopping: independent Preparing meals: independent Housework: independent Taking medicine: independent Managing money: independent PHQ-9 Over the last 2 weeks, how often have you been bothered by any of the following problems? 1. Little interest or pleasure in doing things: not at all 2. Feeling down, depressed, or hopeless: not at all 3. Trouble falling or staying asleep, or sleeping too much: several days 4. Feeling tired or having little energy: several days 5. Poor appetite or overeating: not at all 6. Feeling bad about yourself - or that you are a failure or have let yourself or your family down: not at all 7. Trouble concentrating on things, such as reading the newspaper or watching television: not at all 8. Moving or speaking so slowly that other people could have noticed. Or the opposite - being so fidgety or restless that you have been moving around a lot more than usual: not at all 9. Thoughts that you would be better off or of hurting yourself in some way: not at all Total score: 2 Depression Screening Interpretation: Positive Depression Screening Done: Yes 16280 - PHQ-9 Billing: Yes Source: Developed by Drs. Cr Jules, Yanet Delatorre, Dixon Young and colleagues, with an educational tanner from [employer]. Review of Systems Const Denies chills, Denies fatigue, Denies headache(s) and Denies weight loss Eyes Denies change in vision, Denies diplopia and Denies eye pain ENT Reports Normal hearing present, Denies vertigo, Denies dizziness, Denies headache(s) and Denies nasal discharge Card Denies chest pain, Denies rapid heart rate and Denies dyspnea on exertion Resp Denies chest congestion, Denies cough, Denies pain with cough and Denies dyspnea on exertion GI Denies abdominal pain, Denies hematochezia and Denies change in bowel habits Musc Denies myalgias, Denies arthralgias and Denies joint swelling Skin/Breast Denies lesions and Denies unusual bruising Neuro Reports Normal hearing present, Denies vertigo, Denies dizziness, Denies headache(s) and Denies focal weakness Endo Denies fatigue Physical Exam Vital Signs: Last Vital Signs Pulse 59 04/08/24 09:05 BP 114/62 04/08/24 09:05 Pulse Ox 97 04/08/24 09:05 Oxygen Delivery Method Room Air 04/08/24 09:05 BMI result Body Mass Index 25.1 Neuro Cranial nerves: Yes Normal hearing present Assessment & Plan Assessment & Plan (1) Encounter for subsequent annual wellness visit (AWV) in Medicare patient: Code(s): Z00.00 - Encounter for general adult medical examination without abnormal findings Plan: rhomberg and whisper tests normal; all forms fgiven to patient (2) Hypertension: Code(s): I10 - Essential (primary) hypertension Plan: stable; same rx (3) Hyperlipidemia: Code(s): E78.5 - Hyperlipidemia, unspecified Plan: stable; same rx Quality Reporting (2019) Depression/Bipolar (159/160/161/177) PHQ-9: Total score: 2 Coding Level of Care Code Medicare Subsequent (G0439) Diagnoses Encounter for subsequent annual wellness visit (AWV) in Medicare patient Z00.00 Hypertension I10 Hyperlipidemia E78.5 CPT Codes Advance Care Planning - Advance Care Planning discussion: On file, no changes ([id number]) Advance Care Planning Advance Care Planning discussion: On file, no changes Forms completed: Health Care Proxy
== END 2024-04-08 09:24 | disposition home or self-care (01) ==
PROVIDERS: PCP Internal Medicine; Visit Provider Internal Medicine
DX: Z00.00 Encounter for general adult medical examination without abnormal findings (principal); I10 Essential (primary) hypertension; E78.5 Hyperlipidemia, unspecified

== ENCOUNTER → 2024-04-08 08:58 | Outpatient (BNVA) | payer MEDICARE, SELFPAY | PROVIDERS: PCP Internal Medicine; Visit Provider Internal Medicine ==

== ENCOUNTER 2024-08-28 09:40 | Outpatient (AMB) | payer MEDICARE, SELFPAY ==
[2024-08-28 09:45] VITALS: BP 140/82; PULSE 64; O2SAT 96; BMI 25.8
--- NOTE | 2024-08-28 09:45 | A.OFFPC_ITS ---
Vital Signs 08/28/24 09:45 Height 6 ft Weight 190 lb BMI 25.8 BP 140/82 H Blood Pressure Location Lt brachial Position Sitting Pulse 64 Pulse Source Pulse Oximeter Pulse Oximetry (%) 96 Oxygen Delivery Method Room Air Intake Visit Reasons: 3 Month Follow Up Allergies No Known Allergies Allergy (Verified 08/28/24 09:46) Medication List - Last Reconciled 08/28/24 by Christo Qureshi MD metoprolol succinate ER 50 mg PO BEDTIME simvastatin 20 mg PO BEDTIME terazosin 5 mg PO BEDTIME Tobacco use date assessed: 08/28/24 Fall risk assessment: 1 Fall in past year Last assessed Fall Risk: 08/28/24 Dental Screening Dental Screen Date: 08/28/24 Did you have a dental visit in the last 12 months?: No Did you have a dental problem in the last 6 months where you did not have access to dental care?: No Was dental information given to patient?: Patient has dentist HPI 3 Month Follow Up HPI Details HTN and hyperlipidemia; stable; compliant [facility] Medical History (Updated 04/09/24 @ 09:06 by Christo Qureshi MD) COVID-19 History of Mohs micrographic surgery for skin cancer Arthritis Constipation GERD (gastroesophageal reflux disease) Pilonidal cyst with abscess On beta kyaw at home Numbness BPH (benign prostatic hyperplasia) HTN (hypertension) History of melanoma Upper respiratory tract infection Hyperlipidemia Surgical History (Updated 11/26/23 @ 10:08 by Artie Navarrete MD) Inguinal hernia (11/16/23) Hx of tonsillectomy H/O colonoscopy Hx of prostate biopsy History of skin surgery History of ear surgery Family History Father No problems noted. Mother No problems noted. Son No problems noted. Brother No problems noted. Daughter No problems noted. Social History Housing: House Are you a primary acute care nurse to a significant other at home: No Do you presently have visiting nurse or other home services: No Alcohol intake: current Alcohol intake frequency: 0-2 drinks per day Alcohol type: wine Patient Tobacco Use Status: Former Tobacco user Tobacco use type: Cigarette e-Cigarette/Vaping Use: Never Used Second Hand Smoke Exposure: No service: Yes Current occupational status: retired Cognitive needs: Yes Hearing needs: No Vision needs: Yes Questionnaire PHQ-9 Over the last 2 weeks, how often have you been bothered by any of the following problems? 1. Little interest or pleasure in doing things: not at all 2. Feeling down, depressed, or hopeless: not at all 3. Trouble falling or staying asleep, or sleeping too much: several days 4. Feeling tired or having little energy: several days 5. Poor appetite or overeating: not at all 6. Feeling bad about yourself - or that you are a failure or have let yourself or your family down: not at all 7. Trouble concentrating on things, such as reading the newspaper or watching television: not at all 8. Moving or speaking so slowly that other people could have noticed. Or the opposite - being so fidgety or restless that you have been moving around a lot more than usual: not at all 9. Thoughts that you would be better off or of hurting yourself in some way: not at all Total score: 2 Depression Screening Interpretation: Positive Depression Screening Done: Yes 77927 - PHQ-9 Billing: Yes Source: Developed by Drs. Cr Jules, Yanet Delatorre, Dixon Young and colleagues, with an educational tanner from [employer]. Thrive Questionnaire Date Thrive assessed: 08/28/24 I am a: Patient What is your living situation today?: I have a steady place to live Within the past 12 months, did the food you bought not last and you didn't have the money to get more?: Never true Within the past 12 months, did you worry whether your food would run out before you got money to buy more?: Never true Do you have trouble paying for medicines?: No Do you have trouble getting transportation to medical appointments?: No Do you have trouble paying your heating and electricity bill?: No Do you have trouble taking care of your child, family member or friend?: No Do you have trouble with day-to-day activities such as bathing, preparing meals, shopping, managing finances, etc.?: No Are you currently unemployed and looking for a job?: No Are you interested in more education?: No Currently or been in a relationship where the following occur: No concerns reported THRIVE Score: 0 AUDIT C Alcohol Use Questionnaire (AUDIT-C) 1. How often do you have a drink containing alcohol?: 4 or more times a week 2. How many drinks containing alcohol do you have on a typical day when you are drinking?: 1 or 2 3. How often do you have six or more drinks on one occasion?: Never Total Score: 4 Score Reviewed/Action Taken: Yes MYRA-7 AMB Questionnaire MYRA-7 Date MYRA - 7 assessed: 08/28/24 Feeling nervous, anxious, or on edge: 0 = Not at all Not being able to stop or control worryin = Not at all Worrying too much about different things: 0 = Not at all Trouble relaxin = Not at all Being so restless that it is hard to sit still: 0 = Not at all Becoming easily annoyed or irritable: 0 = Not at all Feeling afraid as if something awful might happen: 0 = Not at all Total MYRA-7 score (0-4 normal; 5-9 mild; 10-14 moderate; 15-21 severe): 0 Source: Developed by Drs. Cr Jules, Yanet Delatorre, Dixon Young and colleagues, with an educational tanner from [employer]. Review of Systems Const Denies chills, Denies headache(s) and Denies weight loss ENT Denies headache(s) Card Denies chest pain, Denies syncope, Denies irregular heart rhythm and Denies dyspnea Resp Denies chest congestion, Denies cough and Denies dyspnea GI Denies abdominal pain, Denies change in stool character, Denies nausea and Denies vomiting Musc Denies deformity and Denies joint swelling Neuro Denies syncope and Denies headache(s) Physical exam (Primary Care) Vital Signs: Last Vital Signs Pulse 64 08/28/24 09:45 BP 140/82 H 08/28/24 09:45 Pulse Ox 96 08/28/24 09:45 Oxygen Delivery Method Room Air 08/28/24 09:45 BMI result Body Mass Index 25.8 Tobacco/Smoking Status: Tobacco use Status Tobacco use date assessed 08/28/24 08/28/24 09:51 Patient Tobacco Use Status Former Tobacco user 08/28/24 09:51 Tobacco use type Cigarette 08/28/24 09:51 e-Cigarette/Vaping Use Never Used 08/28/24 09:51 PHQ-9: PHQ-9 Score PHQ-9: Total score 2 08/28/24 09:51 Depression Screening Interpretation: Positive Thrive Assessment: Date of Thrive Assessment Date Thrive assessed 08/28/24 08/28/24 09:51 Currently or been in a relationship where the following occur: No concerns reported Const General: cooperative, comfortable, no acute distress and alert Neck Neck: Yes no lymphadenopathy Thyroid: Thyroid normal Resp Effort & Inspection: normal respiratory effort Auscultation: clear to auscultation bilaterally Percussion: percussion normal Cardio Jugular venous distension: no JVD Palpation: normal PMI Rate: regular rate Rhythm: regular rhythm Heart sounds: S1 normal heart sound present and S2 normal heart sound present GI Inspection: Yes normal to inspection Palpation (GI): No hepatosplenomegaly present Skin General skin exam: no rashes or lesions noted Extrem General: Yes no clubbing, cyanosis or edema Coding Level of Care Code Est Pt Level 3 (10365) Diagnoses Hypertension I10 Additional Codes PHQ-9 - 55800 - PHQ-9 Billing: Yes ([id number]) Assessment & Plan Assessment & Plan (1) Hypertension: Code(s): I10 - Essential (primary) hypertension Category: Medical Plan: stable; same rx
== END 2024-08-28 10:05 | disposition home or self-care (01) ==
LOC: HO.HMCH 09:41
PROVIDERS: PCP Internal Medicine; Visit Provider Internal Medicine
DX: I10 Essential (primary) hypertension (principal)

== ENCOUNTER → 2024-08-28 09:40 | Outpatient (BNVA) | payer MEDICARE, SELFPAY | PROVIDERS: PCP Internal Medicine; Visit Provider Internal Medicine | DX: I10 Essential (primary) hypertension (principal) | CPT/HCPCS: 96127; 99212 ==

== ENCOUNTER 2024-11-28 09:41 | Outpatient (AMB) | payer MEDICARE, SELFPAY ==
--- NOTE | 2024-11-28 09:54 | A.OFFPC_ITS ---
Vital Signs 3 11/28/24 09:55 11/28/24 10:22 Height 6 ft Weight 186 lb 3.2 oz BMI 25.3 BP 136/70 Blood Pressure Location Lt brachial Position Sitting Respiration 18 Pulse 43 L 52 Pulse Source Pulse Oximeter Auscultation Temp 97.3 F Temp Source Temporal Artery Scan Pulse Oximetry (%) 99 Oxygen Delivery Method Room Air Intake Visit Reasons: Catherine Dr Qureshi/3 month f/u Plan[place] Required: No Accompanied by: Self / Same As Patient Allergies No Known Allergies Allergy (Verified 11/28/24 10:07) Medication List - Last Reconciled 11/28/24 by Jolie West PA-C metoprolol succinate ER 50 mg PO BEDTIME simvastatin 20 mg PO BEDTIME terazosin 5 mg PO DAILY Tobacco use date assessed: 11/28/24 Fall risk assessment: 1 Fall in past year Last assessed Fall Risk: 11/28/24 Dental Screening Dental Screen Date: 11/28/24 Did you have a dental visit in the last 12 months?: Yes Did you have a dental problem in the last 6 months where you did not have access to dental care?: No Was dental information given to patient?: Patient has dentist HPI Catherine Dr Qureshi/3 month f/u 2 HPI0 Details 89-year-old male with past medical histo ry of hyperlipidemia, BPH, hypertension last seen 08/[address] Qureshi coming in for transfer of care. Skin tag: Developed under the ear, sometimes visible, and may be removed by a wage conciliator. History of melanoma: Had melanoma behind the ear in 1984, surgically removed, continues to be monitored for skin cancer. Hernia repair: Underwent successful hernia repair last year with no subsequent issues. Syncope: Experienced a syncopal episode over a year ago while standing, resulting in brief loss of consciousness without injury, evaluated at urgent care with no significant findings. Asymptomatic since. He follows with [facility] and [facility]. [facility] Medical History COVID-19 History of Mohs micrographic surgery for skin cancer Arthritis Constipation GERD (gastroesophageal reflux disease) Pilonidal cyst with abscess On beta kyaw at home Numbness BPH (benign prostatic hyperplasia) HTN (hypertension) History of melanoma Upper respiratory tract infection Hyperlipidemia Surgical History Inguinal hernia (11/16/23) Hx of tonsillectomy H/O colonoscopy Hx of prostate biopsy History of skin surgery History of ear surgery Family History Father No problems noted. Mother No problems noted. Son No problems noted. Brother No problems noted. Daughter No problems noted. Social History Housing: House Are you a primary care worker to a significant other at home: No Do you presently have visiting nurse or other home services: No Alcohol intake: current Alcohol intake frequency: 0-2 drinks per day Alcohol type: wine Patient Tobacco Use Status: Former Tobacco user Tobacco use type: Cigarette e-Cigarette/Vaping Use: Never Used Second Hand Smoke Exposure: No service: Yes Current occupational status: retired Cognitive needs: No Hearing needs: No Vision needs: Yes (Glasses) Questionnaire PHQ-9 Over the last 2 weeks, how often have you been bothered by any of the following problems? 1. Little interest or pleasure in doing things: not at all 2. Feeling down, depressed, or hopeless: not at all 3. Trouble falling or staying asleep, or sleeping too much: not at all 4. Feeling tired or having little energy: not at all 5. Poor appetite or overeating: not at all 6. Feeling bad about yourself - or that you are a failure or have let yourself or your family down: not at all 7. Trouble concentrating on things, such as reading the newspaper or watching television: not at all 8. Moving or speaking so slowly that other people could have noticed. Or the opposite - being so fidgety or restless that you have been moving around a lot more than usual: not at all 9. Thoughts that you would be better off or of hurting yourself in some way: not at all Total score: 0 Depression Screening Interpretation: Negative Depression Screening Done: Yes 56753 - PHQ-9 Billing: Yes Source: Developed by Drs. Cr Jules, Yanet Delatorre, Dixon Young and colleagues, with an educational tanner from [employer]. Thrive Questionnaire Date Thrive assessed: 11/28/24 I am a: Patient What is your living situation today?: I have a steady place to live Within the past 12 months, did the food you bought not last and you didn't have the money to get more?: Never true Within the past 12 months, did you worry whether your food would run out before you got money to buy more?: Never true Do you have trouble paying for medicines?: No Do you have trouble getting transportation to medical appointments?: No Do you have trouble paying your heating and electricity bill?: No Do you have trouble taking care of your child, family member or friend?: No Do you have trouble with day-to-day activities such as bathing, preparing meals, shopping, managing finances, etc.?: No Are you currently unemployed and looking for a job?: No Are you interested in more education?: No Please select the resources that you would like help with: None Currently or been in a relationship where the following occur: No concerns reported THRIVE Score: 0 AUDIT C Alcohol Use Questionnaire (AUDIT-C) 1. How often do you have a drink containing alcohol?: 4 or more times a week 2. How many drinks containing alcohol do you have on a typical day when you are drinking?: 1 or 2 3. How often do you have six or more drinks on one occasion?: Never Total Score: 4 Score Reviewed/Action Taken: Yes MYRA-7 AMB Questionnaire MYRA-7 Date MYRA - 7 assessed: 11/28/24 Feeling nervous, anxious, or on edge: 0 = Not at all Not being able to stop or control worryin = Not at all Worrying too much about different things: 0 = Not at all Trouble relaxin = Not at all Being so restless that it is hard to sit still: 0 = Not at all Becoming easily annoyed or irritable: 0 = Not at all Feeling afraid as if something awful might happen: 0 = Not at all Total MYRA-7 score (0-4 normal; 5-9 mild; 10-14 moderate; 15-21 severe): 0 Source: Developed by Drs. Cr Jules, Yanet Delatorre, Dixon Young and colleagues, with an educational tanner from [employer]. MYRA-7 Assessment Billing MYRA-7 Assessment Tool: MYRA-7 Assessment 18464 Review of Systems Const Denies body aches, Denies chills, Denies fever(s), Denies headache(s) and Denies poor appetite Eyes Reports no additional complaints ENT Denies dysphagia, Denies dizziness, Denies headache(s) and Denies odynophagia Card Denies chest pain, Denies lightheadedness and Denies dyspnea Resp Denies dyspnea GI Denies abdominal pain, Denies dysphagia, Denies nausea, Denies odynophagia and Denies vomiting Reports no additional complaints Musc Reports no additional complaints Skin/Breast Reports system reviewed and no additional complaints, except as documented Neuro Denies dizziness and Denies headache(s) Psych Reports no additional complaints Physical exam (Primary Care) Vital Signs: Last Vital Signs Temp 97.3 F 11/28/24 09:55 Pulse 43 L 11/28/24 09:55 Resp 18 11/28/24 09:55 BP 136/70 11/28/24 09:55 Pulse Ox 99 11/28/24 09:55 Oxygen Delivery Method Room Air 11/28/24 09:55 BMI result Body Mass Index 25.3 Tobacco/Smoking Status: Tobacco use Status Tobacco use date assessed 11/28/24 11/28/24 10:02 Patient Tobacco Use Status Former Tobacco user 11/28/24 10:02 Tobacco use type Cigarette 11/28/24 10:02 e-Cigarette/Vaping Use Never Used 11/28/24 10:02 PHQ-9: PHQ-9 Score PHQ-9: Total score 0 11/28/24 10:02 Depression Screening Interpretation: Negative Thrive Assessment: Date of Thrive Assessment Date Thrive assessed 11/28/24 11/28/24 10:02 Currently or been in a relationship where the following occur: No concerns reported Const General: cooperative, healthy appearing, comfortable and no acute distress Orientation/consciousness: patient oriented x3 HENMT Head: Yes normocephalic Ears: hearing grossly normal bilaterally General nose exam: Normal external nose present Face images: 2 1. nontender bump without scabbing Eyes General: appearance normal, both eyes and all related structures Conjunctivae: conjunctivae normal Neck Neck: Yes full ROM and Yes no lymphadenopathy Resp Effort & Inspection: normal respiratory effort Auscultation: clear to auscultation bilaterally, no crackles, no rales, no rhonchi and no wheezes Cardio Rate: regular rate Rhythm: regular rhythm Skin General skin exam: no rashes or lesions noted Neuro General: patient oriented x3 Gait exam (Neuro): Normal gait present Extrem General: Yes normal to inspection, Yes full ROM and No edema Psych Affect: normal affect Attitude: cooperative Insight: Good insight present (Psych) Judgement: Good judgement present (Psych) Coding Level of Care Code Est Pt Level 3 (22895) Diagnoses Hypertension I10 BPH associated with nocturia N40.1; R35.1 Hyperlipidemia E78.5 Skin lesion L98.9 Additional Codes MYRA-7 Assessment Billing - MYRA-7 Assessment Tool: MYRA-7 Assessment 16264 ([id number]) PHQ-9 - 84793 - PHQ-9 Billing: Yes ([id number]) Assessment & Plan Assessment & Plan (1) Hypertension: Code(s): I10 - Essential (primary) hypertension Category: Medical Plan: Continue on current blood pressure medication. Avoid salt intake and encourage healthy diet and regular exercise. (2) BPH associated with nocturia: Comment: Urology Code(s): N40.1 - Benign prostatic hyperplasia with lower urinary tract symptoms; R35.1 - Nocturia Category: Medical Plan: [facility] and on terazosin with good benefit. (3) Hyperlipidemia: Code(s): E78.5 - Hyperlipidemia, unspecified Category: Medical Plan: Avoid foods that are high in cholesterol such as red meat, fried foods, eggs and baked goods. Triglyceride goal of less than 150 and LDL goal of less than 100. Continue on simvastatin (4) Skin lesion: Code(s): L98.9 - Disorder of the skin and subcutaneous tissue, unspecified Category: Medical Plan: Patient has a skin lesion under the right nostril recommend following up with Dermatology for possible removal. Plan The patient will follow up with dermatology for ongoing skin cancer monitoring and potential removal of the skin tag under the ear. A follow-up with [facility] is planned for prostate health monitoring, given the history of a prostate biopsy. Blood work has been ordered, including cholesterol screening, which requires fasting for 8 to 12 hours prior to the test. The patient is advised to monitor for any recurrence of syncope and report any new episodes, especially if associated with other symptoms. This note was constructed using voice recognition software. While every effort has been made to ensure accuracy and contact lens cutter, still areas may have been included sometimes these areas may affect the content or meeting of the given symptoms. Total time spent caring for the patient today was 20 minutes. This includes time spent before the visit reviewing the chart, time spent during the visit, and time spent after the visit and documentation. Patient was informed and verbally consented to the use of an ambient scribe for clinic note documentation during this visit. Orders: Orders 2 PSA, Ultra Sensitive Today N40.1 - Benign prostatic hyperplasia with lower urinary tract symptoms, R35.1 - Nocturia, Z00.00 - Encounter for general adult medical examination without abnormal findings Vitamin D 25-OH Total Today I10 - Essential (primary) hypertension, Z00.00 - Encounter for general adult medical examination without abnormal findings Complete Blood Count Auto Diff Today I10 - Essential (primary) hypertension, Z00.00 - Encounter for general adult medical examination without abnormal findings Hemoglobin A1c Today Z13.1 - Encounter for screening for diabetes mellitus Lipid Panel Today E78.00 - Pure hypercholesterolemia, unspecified, E78.5 - Hyperlipidemia, unspecified Vitamin B12 and Folate Today I10 - Essential (primary) hypertension, Z13.21 - Encounter for screening for nutritional disorder Comprehensive Met. Panel Today I10 - Essential (primary) hypertension, Z00.00 - Encounter for general adult medical examination without abnormal findings
[2024-11-28 09:55] VITALS: BP 136/70; PULSE 43; RESP 18; TEMP 36.3; O2SAT 99; BMI 25.3
--- OUTSIDE RECORDS SUMMARY | 2024-11-28 10:10 | XMS_ITS | Patient Health Record ---
Author Organization [facility] michaelle [place]ers Address [address] [place] [address] Care Team Providers Care Faculty Dean Name Role Phone Joyce JOHNSON, [facility] Primary Care Provider Unavail able Black, Sera Unavailable [phone] Reason For Referral No Information Medications Medication SIG (Take, Route, Fr equency, Duration) Notes Start Date End Date Status Simvastatin 20 MG 1 tablet in the even ing Orally Once a day for 30 day(s) Active Toprol XL 50 MG 1 tablet Orally Once a day for 30 day(s) Active Terazosin HCl 5 MG 1 capsule Orally Onc e a day for 30 day(s) Active Problems Problem Type SNOMED Code ICD Code Onset Dates Problem Status W/U Status Risk Notes Problem Ingrowing nail (366395171) Ingrowing Nail (703.0) Active confirmed Problem Neuralgia - Neuritis (729.2) Active confirmed Problem Pain in limb (28933110) Pain in Limb (729.5) Active confirmed Problem Paronychia (93712673) Paronychia (681.11) Active confirmed Plan Of Treatment Pending Test Test Name Order Date [id number] Plate 04/11/2012 73789- Debride <25 sq cm 04/29/2012 99911 I&D ABSCESS- SIMPLE,SINGLE 012 Insurance Providers Payer Name Payer Address Payer Phone Subscriber Number Group Number Insured Name Patient Relationship to Insured Coverage Start Date Coverage End Date Medicare National Govt [employer] [address] [place] [address] [id number] Cliff Lee Self - patient is the insured [employer] [address] [place] [address] [id number] Cliff Lee Self - patient is the insured Medical (General) History Medical History History ICD Code back, hip, knee pain neuropathy measles mumps chicken pox Surgical History Surgery Date(Month/Year) melanoma excision 1984
[2024-11-28 10:22] VITALS: PULSE 52
== END 2024-11-28 10:30 | disposition home or self-care (01) ==
LOC: HO.HMCH 09:42
DX: I10 Essential (primary) hypertension (principal); N40.1 Benign prostatic hyperplasia with lower urinary tract symptoms; R35.1 Nocturia; E78.5 Hyperlipidemia, unspecified; L98.9 Disorder of the skin and subcutaneous tissue, unspecified

== ENCOUNTER → 2024-11-28 09:41 | Outpatient (BNVA) | payer MEDICARE, SELFPAY | DX: I10 Essential (primary) hypertension (principal); N40.1 Benign prostatic hyperplasia with lower urinary tract symptoms; R35.1 Nocturia; E78.5 Hyperlipidemia, unspecified; L98.9 Disorder of the skin and subcutaneous tissue, unspecified | CPT/HCPCS: 96127; 99212 ==

== ENCOUNTER 2025-02-02 08:14 | Outpatient (REF) | payer MEDICARE, SELFPAY ==
--- OUTSIDE RECORDS SUMMARY | 2025-02-02 08:31 | XMS_ITS | Patient Health Record ---
Author Organization [facility] michaelle [place] Address [address] [place] [address] Care Team Providers Care Machine Hoop Maker Name Role Phone Joyce JOHNSON, [facility] Primary Care Provider Unavail able Sera Tillman Unavailable [phone] Reason For Referral No Information Medications Medication SIG (Take, Route, Fr equency, Duration) Notes Start Date End Date Status Simvastatin 20 MG 1 tablet in the even ing Orally Once a day; Duration: 30 day(s) Active Toprol XL 50 MG 1 tablet Orally Once a day; Duration: 30 day(s) Active Terazosin HCl 5 MG 1 capsule Orally Onc e a day; Duration: 30 day(s) Active Problems Problem Type SNOMED Code ICD Code Onset Dates Problem Status W/U Status Risk Notes Problem Ingrowing nail (248383124) Ingrowing Nail (703.0) Active confirmed Problem Neuralgia - Neuritis (729.2) Active confirmed Problem Pain in limb (61016128) Pain in Limb (729.5) Active confirmed Problem Paronychia (71754711) Paronychia (681.11) Active confirmed Plan Of Treatment Pending Test Test Name Order Date [id number] Plate 04/11/2012 73235- Debride <25 sq cm 04/29/2012 95539 I&D ABSCESS- SIMPLE,SINGLE 012 Insurance Providers Payer Name Payer Address Payer Phone Subscriber Number Group Number Insured Name Patient Relationship to Insured Coverage Start Date Coverage End Date Medicare National Govt [employer] [address] [place] [address] [id number] Cliff Lee Self - patient is the insured [employer] [address] [place] [address] [id number] Cliff Lee Self - patient is the insured Medical (General) History Medical History History ICD Code back, hip, knee pain neuropathy measles mumps chicken pox Surgical History Surgery Date(Month/Year) melanoma excision 1984
--- OUTSIDE RECORDS SUMMARY | 2025-02-02 08:31 | XMS_ITS | Patient Health Record ---
Author Organization [facility] Address [address] [place] [id number] Care Team Providers Care Installer Inspector Final Name Role Phone Cr Lincoln Unavailable [phone] Reason For Referral No Information Plan Of Treatment No Information
[2025-02-02 10:00] LABS: MANUAL DIFF FLAG NO
[2025-02-02 10:04] LABS: Hematocrit 39.5 % (42.0-52.0); Hemoglobin 12.9 g/dl (14.0-18.0); Imm Gran Abs Auto 0.02 X10*3/uL (0.00-0.03); Imm Gran Pct Auto 0.3 % (0.0-0.4); Lymphocytes Absolute Auto 1.2 X10*3/uL (1.2-4.9); Mean Corpuscular HGB Conc 32.7 g/dl (31.0-36.0); Mean Corpuscular Hemoglobin 30.6 pg (27.0-33.0); Mean Corpuscular Volume 93.6 fL (80.0-98.0); NRBC Abs Auto 0.000 X10*3/uL (0.0-0.012); NRBC Pct Auto 0.0 /100WBC (0.0-0.2); Platelet Count 197 X10*3/uL (160-400); Red Blood Count 4.22 X10*6/uL (4.60-5.80); White Blood Count 6.0 X10*3/uL (4.8-10.8)
[2025-02-02 10:27] LABS: Hemoglobin A1C 115.3624 umol/L; Total Hemoglobin (HGBA1C) 3448.5926 umol/L
[2025-02-02 10:52] LABS: Alanine Aminotransferase 16 U/L (0-40); Albumin Level 4.4 g/dL (3.5-5.0); Alkaline Phosphatase 67 U/L (39-117); Anion Gap 13 (12-20); Aspartate Amino Transferase 28 U/L (5-37); Blood Urea Nitrogen 22 mg/dL (9-16); Calcium 9.3 mg/dL (8.4-10.2); Carbon Dioxide 27 mmol/L (22-29); Chloride 106 mmol/L (96-108); Cholesterol 120 mg/dL (<200); Estimated Glomerular Filt Rate 47; HDL Cholesterol 42 mg/dL (>40); Potassium 4.5 mmol/L (3.3-5.1); Sodium 141 mmol/L (135-145); Total Protein 6.8 g/dL (6.5-8.0); Triglycerides 100 mg/dL (<150)
[2025-02-02 11:28] LABS: Folate 10.0 ng/mL (> or = 4.0); Vitamin B12 302 pg/mL (200-900)
[2025-02-06 00:17] LABS: PSA, Ultra Sensitive 5.17 ng/mL
== END 2025-02-02 08:15 | disposition home or self-care (01) ==
LOC: HO.HMGCLDS 08:14
DX: Z00.00 Encounter for general adult medical examination without abnormal findings (principal); N40.1 Benign prostatic hyperplasia with lower urinary tract symptoms; R35.1 Nocturia; I10 Essential (primary) hypertension; E78.00 Pure hypercholesterolemia, unspecified; E78.5 Hyperlipidemia, unspecified; Z13.1 Encounter for screening for diabetes mellitus; Z13.21 Encounter for screening for nutritional disorder; Z12.5 Encounter for screening for malignant neoplasm of prostate
CPT/HCPCS: 36415; 80053; 80061; 82306; 82607; 82746; 83036; 84153; 85025

== ENCOUNTER 2025-03-02 09:42 | Outpatient (AMB) | payer MEDICARE, SELFPAY ==
--- NOTE | 2025-03-02 09:49 | MHC.PC.OV ---
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 Required: No Accompanied by: Self / Same As Patient Allergies No Known Allergies Allergy (Verified 03/02/25 10:02) Medication List - Last Reconciled 03/02/25 by Jolie West PA-C metoprolol succinate ER 50 mg PO BEDTIME simvastatin 20 mg PO BEDTIME terazosin 5 mg PO DAILY Tobacco use date assessed: 11/28/24 Fall risk assessment: No Falls in past year Last assessed Fall Risk: 03/02/25 Dental Screening Dental Screen Date: 03/02/25 Did you have a dental visit in the last 12 months?: Yes Did you have a dental problem in the last 6 months where you did not have access to dental care?: No Was dental information given to patient?: Patient has dentist HPI 3 month f/u HPI Details 89-year-old male with past medical history of hyperlipidemia, BPH, hypertension last seen 11/2024 coming in for follow up. Presenting with a follow-up on blood work and management of chronic conditions. The patient has been following up with a urologist for an elevated PSA level. He underwent a prostate biopsy with 14 samples taken, all of which were normal. The last visit to the urologist was over a year ago. The patient had a growth on his nose, which was almost as big as a pea. It fell off spontaneously and has healed completely. He does continue to follow with dermatology in [place] as well. The patient reports that his skin is very thin and bruises easily, especially when working outside. He experiences minor bleeding from these bruises, which resolves spontaneously. The patient experienced dehydration during the summer due to inadequate water intake while working outside. This led to a temporary decline in kidney function, which has since improved with increased hydration. The patient experiences itchy skin and has used cortisone cream for relief. He was advised to use hydrating creams instead, as cortisone can thin the skin further. [facility] Medical History COVID-19 History of Mohs micrographic surgery for skin cancer Arthritis Constipation GERD (gastroesophageal reflux disease) Pilonidal cyst with abscess On beta kyaw at home Numbness BPH (benign prostatic hyperplasia) HTN (hypertension) History of melanoma Upper respiratory tract infection Hyperlipidemia Surgical History Inguinal hernia (11/16/23) Hx of tonsillectomy H/O colonoscopy Hx of prostate biopsy History of skin surgery History of ear surgery Family History Father No problems noted. Mother No problems noted. Son No problems noted. Brother No problems noted. Daughter No problems noted. Social History Housing: House Are you a primary out of school hours care worker to a significant other at home: No Do you presently have visiting nurse or other home services: No Alcohol intake: current Alcohol intake frequency: 0-2 drinks per day Alcohol type: wine Patient Tobacco Use Status: Former Tobacco user Tobacco use type: Cigarette e-Cigarette/Vaping Use: Never Used Second Hand Smoke Exposure: No service: Yes Current occupational status: retired Cognitive needs: No Hearing needs: No Vision needs: Yes (Glasses) Questionnaire Thrive Questionnaire Date Thrive assessed: 11/24/24 I am a: Patient What is your living situation today?: I have a steady place to live Within the past 12 months, did the food you bought not last and you didn't have the money to get more?: Never true Within the past 12 months, did you worry whether your food would run out before you got money to buy more?: Never true Do you have trouble paying for medicines?: No Do you have trouble getting transportation to medical appointments?: No Do you have trouble paying your heating and electricity bill?: No Do you have trouble taking care of your child, family member or friend?: No Do you have trouble with day-to-day activities such as bathing, preparing meals, shopping, managing finances, etc.?: No Are you currently unemployed and looking for a job?: No Are you interested in more education?: No Please select the resources that you would like help with: None Currently or been in a relationship where the following occur: No concerns reported THRIVE Score: 0 MYRA-7 AMB Questionnaire MYRA-7 Date MYRA - 7 assessed: 11/28/24 Source: Developed by Drs. Cr Jules, Yanet Delatorre, Dixon Young and colleagues, with an educational tanner from [employer]. Review of Systems Const Denies body aches, Denies chills, Denies fever(s), Denies headache(s) and Denies poor appetite Eyes Reports no additional complaints ENT Denies dysphagia, Denies dizziness, Denies headache(s) and Denies odynophagia Card Denies chest pain, Denies syncope, Denies edema, Denies irregular heart rhythm, Denies lightheadedness and Denies dyspnea Resp Denies cough and Denies dyspnea GI Denies abdominal pain, Denies constipation, Denies dysphagia, Denies diarrhea, Denies nausea, Denies odynophagia and Denies vomiting Reports no additional complaints Musc Reports no additional complaints and Denies abnormal gait Skin/Breast Reports system reviewed and no additional complaints, except as documented Neuro Denies abnormal gait, Denies dizziness, Denies syncope and Denies headache(s) Psych Reports no additional complaints Physical exam (Primary Care) Vital Signs: Last Vital Signs Pulse 58 03/02/25 09:50 BP 122/68 03/02/25 10:22 Pulse Ox 98 03/02/25 09:50 Oxygen Delivery Method Room Air 03/02/25 09:50 BMI result Body Mass Index 24.3 Tobacco/Smoking Status: Tobacco use Status Tobacco use date assessed 11/28/24 03/02/25 09:58 Patient Tobacco Use Status Former Tobacco user 03/02/25 09:58 Tobacco use type Cigarette 03/02/25 09:58 e-Cigarette/Vaping Use Never Used 03/02/25 09:58 Thrive Assessment: Date of Thrive Assessment Date Thrive assessed 11/24/24 03/02/25 09:58 Currently or been in a relationship where the following occur: No concerns reported Const General: cooperative, healthy appearing, comfortable and no acute distress Orientation/consciousness: patient oriented x3 HENMT Head: Yes normocephalic Ears: hearing grossly normal bilaterally General nose exam: Normal external nose present Eyes General: appearance normal, both eyes and all related structures Conjunctivae: conjunctivae normal Neck Neck: Yes full ROM and Yes no lymphadenopathy Resp Effort & Inspection: normal respiratory effort Auscultation: clear to auscultation bilaterally, no crackles, no rales, no rhonchi and no wheezes Cardio Rate: regular rate Rhythm: regular rhythm Skin General skin exam: no rashes or lesions noted Neuro General: patient oriented x3 Gait exam (Neuro): Normal gait present Extrem General: Yes normal to inspection, Yes full ROM and No edema Psych Affect: normal affect Attitude: cooperative Insight: Good insight present (Psych) Judgement: Good judgement present (Psych) Coding Level of Care Code Est Pt Level 3 (49102) Diagnoses Primary hypertension I10 Hypertension type: primary hypertension Mixed hyperlipidemia E78.2 Hyperlipidemia type: mixed hyperlipidemia BPH associated with nocturia N40.1; R35.1 Skin lesion L98.9 Elevated serum creatinine R79.89 Anemia D64.9 Assessment & Plan Assessment & Plan (1) Hypertension: Code(s): I10 - Essential (primary) hypertension Category: Medical Qualifiers: Hypertension type: primary hypertension Qualified Code(s): I10 - Essential (primary) hypertension Plan: Continue on current blood pressure medication. Avoid salt intake and encourage healthy diet and regular exercise. (2) Hyperlipidemia: Code(s): E78.5 - Hyperlipidemia, unspecified Category: Medical Qualifiers: Hyperlipidemia type: mixed hyperlipidemia Qualified Code(s): E78.2 - Mixed hyperlipidemia Plan: Avoid foods that are high in cholesterol such as red meat, fried foods, eggs and baked goods. Triglyceride goal of less than 150 and LDL goal of less than 100. Continue on Simvastatin (3) BPH associated with nocturia: Comment: [facility] Code(s): N40.1 - Benign prostatic hyperplasia with lower urinary tract symptoms; R35.1 - Nocturia Category: Medical Plan: The patient will continue follow-up with the urologist for monitoring of PSA levels. The last biopsy showed no malignancy, and the patient will be contacted to schedule a follow-up appointment with the urologist. Plan to request urology notes (4) Skin lesion: Code(s): L98.9 - Disorder of the skin and subcutaneous tissue, unspecified Category: Medical Plan: Skin lesion has resolved. He will continue to follow with dermatology (5) Elevated serum creatinine: Code(s): R79.89 - Other specified abnormal findings of blood chemistry Category: Medical Plan: The patient is encouraged to maintain adequate hydration, especially during outdoor activities, to prevent recurrence of dehydration and support kidney function. Plan for repeat blood work. (6) Anemia: Code(s): D64.9 - Anemia, unspecified Category: Medical Plan: Plan to repeat blood work. Plan This note was constructed using voice recognition software. While every effort has been made to ensure accuracy and smoke chaser, still areas may have been included sometimes these areas may affect the content or meeting of the given symptoms. Total time spent caring for the patient today was 20 minutes. This includes time spent before the visit reviewing the chart, time spent during the visit, and time spent after the visit and documentation. Patient was informed and verbally consented to the use of an ambient scribe for clinic note documentation during this visit. During the visit, we discussed the importance of maintaining hydration to prevent dehydration and support kidney function. I advised the patient to use hydrating creams for his skin instead of cortisone to prevent further thinning. We also reviewed the need for follow-up with the urologist regarding his PSA levels and encouraged monitoring of any skin lesions. Orders: Orders Complete Blood Count Auto Diff Today D64.9 - Anemia, unspecified, Z00.00 - Encounter for general adult medical examination without abnormal findings Basic Metabolic Panel Today R79.89 - Other specified abnormal findings of blood chemistry Medications: New ammonium lactate 12% (AmLactin) 1 appl topical DAILY 225 grams 1RF R79.89 - Other specified abnormal findings of blood chemistry
[2025-03-02 09:50] VITALS: BP 100/48; PULSE 58; O2SAT 98; BMI 24.3
[2025-03-02 10:22] VITALS: BP 122/68
--- OUTSIDE RECORDS SUMMARY | 2025-03-02 11:52 | XMS_ITS | Patient Health Record ---
Author Organization [facility] michaelle Byers Address [address] [place] [address] Care Team Providers Care Follow Up Clerk Name Role Phone Joyce JOHNSON, [facility] Primary Care Provider Unavail able Sera Tillman Unavailable [phone] Reason For Referral No Information Medications Medication [...] W/U Status Risk Notes Problem Ingrowing nail (083620755) Ingrowing Nail (703.0) Active confirmed Problem Neuralgia - Neuritis (729.2) Active confirmed Problem Pain in limb (06032563) Pain in Limb (729.5) Active confirmed Problem Paronychia (15527011) Paronychia (681.11) Active confirmed Plan Of Treatment Pending Test Test Name Order Date [id number]-Skhdoblq Plate 04/11/2012 01197- Debride <25 sq cm 04/29/2012 32649 I&D ABSCESS- SIMPLE,SINGLE 012 Insurance Providers Payer Name Payer Address Payer Phone Subscriber Number Group Number Insured Name Patient Relationship to Insured Coverage Start Date Coverage End Date Medicare National Govt Sv[employer] [address] [place] [address] [id number] Cliff Lee Self - patient is the insured [employer] [address] [place] [address] [id number] Cliff Lee Self - patient is the insured Medical (General) History Medical History History ICD Code back, hip, knee pain neuropathy measles mumps chicken pox Surgical History Surgery Date(Month/Year) melanoma excision 1984
--- OUTSIDE RECORDS SUMMARY | 2025-03-02 11:52 | XMS_ITS | Patient Health Record ---
Author Organization [facility] Address [address] [place] [address] Care Team Providers Care Master Craftsman Name Role Phone Cr Lincoln Unavailable [phone] Reason For Referral No Information Plan Of Treatment No Information
== END 2025-03-02 10:35 | disposition home or self-care (01) ==
LOC: HO.HMCH 09:43
DX: I10 Essential (primary) hypertension (principal); E78.2 Mixed hyperlipidemia; N40.1 Benign prostatic hyperplasia with lower urinary tract symptoms; R35.1 Nocturia; L98.9 Disorder of the skin and subcutaneous tissue, unspecified; R79.89 Other specified abnormal findings of blood chemistry; D64.9 Anemia, unspecified

== ENCOUNTER → 2025-03-02 09:42 | Outpatient (BNVA) | payer MEDICARE, SELFPAY | DX: I10 Essential (primary) hypertension (principal); E78.2 Mixed hyperlipidemia; N40.1 Benign prostatic hyperplasia with lower urinary tract symptoms; R35.1 Nocturia; L98.9 Disorder of the skin and subcutaneous tissue, unspecified; R79.89 Other specified abnormal findings of blood chemistry; D64.9 Anemia, unspecified | CPT/HCPCS: 99212 ==

== ENCOUNTER 2025-03-05 09:16 | Outpatient (REF) | payer MEDICARE, SELFPAY ==
[2025-03-05 10:08] LABS: MANUAL DIFF FLAG NO
[2025-03-05 10:27] LABS: Hematocrit 37.5 % (42.0-52.0); Hemoglobin 12.4 g/dl (14.0-18.0); Imm Gran Abs Auto 0.02 X10*3/uL (0.00-0.03); Imm Gran Pct Auto 0.3 % (0.0-0.4); Lymphocytes Absolute Auto 1.1 X10*3/uL (1.2-4.9); Mean Corpuscular HGB Conc 33.1 g/dl (31.0-36.0); Mean Corpuscular Hemoglobin 31.6 pg (27.0-33.0); Mean Corpuscular Volume 95.4 fL (80.0-98.0); NRBC Abs Auto 0.000 X10*3/uL (0.0-0.012); NRBC Pct Auto 0.0 /100WBC (0.0-0.2); Platelet Count 179 X10*3/uL (160-400); Red Blood Count 3.93 X10*6/uL (4.60-5.80); White Blood Count 6.1 X10*3/uL (4.8-10.8)
--- OUTSIDE RECORDS SUMMARY | 2025-03-05 10:46 | XMS_ITS | Patient Health Record ---
Author Organization [facility] michaelle Byers Address [address] [place] [address] Care Team Providers Care Pediatric Orthodontist Name Role Phone Joyce JOHNSON, [facility] Primary Care Provider Unavail able Sera Tillman Unavailable [phone] Reason For Referral No Information Medications Medication [...] W/U Status Risk Notes Problem Ingrowing nail (138700183) Ingrowing Nail (703.0) Active confirmed Problem Neuralgia - Neuritis (729.2) Active confirmed Problem Pain in limb (03915948) Pain in Limb (729.5) Active confirmed Problem Paronychia (34871577) Paronychia (681.11) Active confirmed Plan Of Treatment Pending Test Test Name Order Date [id number] Plate 04/11/2012 29390- Debride <25 sq cm 04/29/2012 48212 I&D ABSCESS- SIMPLE,SINGLE 012 Insurance Providers Payer Name Payer Address Payer Phone Subscriber Number Group Number Insured Name Patient Relationship to Insured Coverage Start Date Coverage End Date Medicare National Govt Svcs Inc [address] [place] [address] [id number] Cliff Lee Self - patient is the insured [employer] [address] [place] [address] [id number] Cliff Lee Self - patient is the insured Medical (General) History Medical History History ICD Code back, hip, knee pain neuropathy measles mumps chicken pox Surgical History Surgery Date(Month/Year) melanoma excision 1984
--- OUTSIDE RECORDS SUMMARY | 2025-03-05 10:46 | XMS_ITS | Patient Health Record ---
Author Organization [facility] Address [address] [place] [address] Care Team Providers Care Information Systems Manager Name Role Phone Cr Lincoln Unavailable [phone] Reason For Referral No Information Plan Of Treatment No Information
[2025-03-05 11:21] LABS: Anion Gap 8 (12-20); Blood Urea Nitrogen 27 mg/dL (9-16); Calcium 8.9 mg/dL (8.4-10.2); Carbon Dioxide 29 mmol/L (22-29); Chloride 108 mmol/L (96-108); Estimated Glomerular Filt Rate 47; Potassium 4.0 mmol/L (3.3-5.1); Sodium 141 mmol/L (135-145)
== END 2025-03-05 09:17 | disposition home or self-care (01) ==
LOC: HO.HMGCLDS 09:16
DX: Z00.00 Encounter for general adult medical examination without abnormal findings (principal); R79.89 Other specified abnormal findings of blood chemistry; D64.9 Anemia, unspecified
CPT/HCPCS: 36415; 80048; 85025